=== PATIENT | female | born 1980 | race American Indian/Alaskan Native ===

== ENCOUNTER 2018-04-09 04:49 | Emergency (ER) | payer OTHER ==
[2018-04-09] MEDS ORDERED: TYLENOL ONE (05:33)
[2018-04-09 06:04] LABS: Basophils # (Auto) 0.1 K/mm3 (0.0-0.1); Eosinophils # (Auto) 0.2 K/mm3 (0.0-0.4); Eosinophils % (Auto) 2.3 % (0.0-4.3); Hemoglobin 12.6 gm/dl (10.1-14.3); Lymphocytes # (Auto) 1.3 K/mm3 (1.2-5.4); Lymphocytes % (Auto) 17.7 % (13.4-35.0); Mean Corpuscular HGB Conc 34 % (30-34); Mean Corpuscular Hemoglobin 31 pg (28-32); Mean Corpuscular Volume 91 fl (79-97); Monocytes # (Auto) 0.8 K/mm3 (0.0-0.8); Monocytes % (Auto) 9.9 % (0.0-7.3); Platelet Count 317 K/mm3 (140-440); Red Blood Count 4.08 M/mm3 (3.65-5.03); Red Cell Distribution Width 13.2 % (13.2-15.2)
[2018-04-09 06:34] LABS: BUN/Creatinine Ratio 18; Blood Urea Nitrogen 11 mg/dL (7-17); Calcium 8.8 mg/dL (8.4-10.2); Hemolysis Index 36
--- NOTE | 2018-04-09 07:22 | Emergency Department Report ---
ED General Adult HPI - General Chief complaint: Extremity Problem,Nontraumatic Stated complaint: LT FOOT PAIN Time Seen by Provider: 04/09/18 07:20 Source: patient Mode of arrival: Ambulatory Limitations: Language Barrier - History of Present Illness Initial comments: 38-year-old female complains of swelling and redness of her left toe and foot. Symptoms for the past 3 days. She's had no fever or chills. She hasn't walked outside but she thinks that something may have stung her or bit her. She didn' t actually see an insect. She has no history of podiatric problems. She's had no recent travel. She denies calf or thigh tenderness. She's had no respiratory symptoms. -: days(s) Location: left, lower extremity Radiation: non-radiation Quality: stabbing Consistency: intermittent Improves with: none Worsens with: none Associated Symptoms: denies other symptoms Treatments Prior to Arrival: none - Related Data Previous Rx's Medication Instructions Recorded Last Taken Type HYDROcodone/ACETAMINOPHEN [Devers 1 each PO Q6H PRN #7 tablet 04/09/18 Unknown Rx 5-325 Tablet] Sulfamethoxazole/Trimethoprim 1 each PO BID #20 tablet 04/09/18 Unknown Rx [Bactrim DS TAB] Allergies Allergy/AdvReac Type Severity Reaction Status Date / Time No Known Allergies Allergy Unverified 04/09/18 05:41 ED Review of Systems ROS: Stated complaint: LT FOOT PAIN Other details as noted in HPI Constitutional: denies: chills, fever Eyes: denies: eye pain, eye discharge, vision change ENT: denies: ear pain, throat pain Respiratory: denies: cough, shortness of breath, wheezing Cardiovascular: denies: chest pain, palpitations Endocrine: no symptoms reported Gastrointestinal: denies: abdominal pain, nausea, diarrhea Genitourinary: denies: urgency, dysuria, discharge Musculoskeletal: as per HPI. denies: back pain, joint swelling, arthralgia Skin: denies: rash, lesions Neurological: denies: headache, weakness, paresthesias Psychiatric: denies: anxiety, depression Hematological/Lymphatic: denies: easy bleeding, easy bruising ED Past Medical Hx - Past Medical History Previous Medical History?: No - Social History Smoking Status: Current Every Day Smoker Substance Use Type: Alcohol - Medications Home Medications: Home Medications Medication Instructions Recorded Confirmed Last Taken Type HYDROcodone/ACETAMINOPHEN [Devers 1 each PO Q6H PRN #7 tablet 04/09/18 Unknown Rx 5-325 Tablet] Sulfamethoxazole/Trimethoprim 1 each PO BID #20 tablet 04/09/18 Unknown Rx [Bactrim DS TAB] ED Physical Exam - General Limitations: Language Barrier General appearance: alert, in no apparent distress - Head Head exam: Present: atraumatic, normocephalic - Eye Eye exam: Present: normal appearance, PERRL, EOMI - ENT ENT exam: Present: mucous membranes moist - Neck Neck exam: Present: normal inspection. Absent: tenderness, meningismus - Respiratory Respiratory exam: Present: normal lung sounds bilaterally. Absent: respiratory distress - Cardiovascular Cardiovascular Exam: Present: regular rate, normal rhythm. Absent: systolic murmur, diastolic murmur, rubs, gallop - GI/Abdominal GI/Abdominal exam: Present: soft, normal bowel sounds. Absent: distended, tenderness, guarding, rebound, rigid - Extremities Exam Extremities exam: Present: other (there is a central umbilicated area which looks like a possible sustaining of the left dorsal lateral toe. There is erythema. There is no pustule. There is mild edema and slight dorsal foot edema. There is no calf or thigh tenderness. There is no lymphangitis. There is no inguinal adenopathy.) - Back Exam Back exam: Present: normal inspection - Neurological Exam Neurological exam: Present: alert, oriented X3, CN II-XII intact. Absent: motor sensory deficit - Psychiatric Psychiatric exam: Present: normal affect, normal mood - Skin Skin exam: Present: warm, dry, intact, normal color. Absent: rash ED Course Vital Signs 04/09/18 04/09/18 04/09/18 04:47 05:31 07:26 Temperature 98.0 F 98 F Pulse Rate 79 75 88 Respiratory 18 20 18 Rate Blood Pressure 177/115 177/115 Blood Pressure 147/93 [Right] O2 Sat by Pulse 100 100 99 Oximetry - Reevaluation(s) Reevaluation #1: Patient was started with a gram of vancomycin. She is nontoxic. She is appropriate for a trial of outpatient antibiotics. Was nonrevealing. She is referred to podiatry. She is discharged in stable condition 04/09/18 08:41 ED Medical Decision Making - Lab Data Result diagrams: 04/09/18 05:53 04/09/18 05:53 Laboratory Results - last 24 hr 04/09/18 04/09/18 05:53 05:53 WBC 7.6 RBC 4.08 Hgb 12.6 Hct 37.0 MCV 91 MCH 31 MCHC 34 RDW 13.2 Plt Count 317 Lymph % (Auto) 17.7 [place] % (Auto) 9.9 H Eos % (Auto) 2.3 Baso % (Auto) 1.0 Lymph # 1.3 [place] # 0.8 Eos # 0.2 Baso # 0.1 Seg Neutrophils % 69.1 Seg Neutrophils # 5.3 Sodium 136 L Potassium 4.5 Chloride 102.2 Carbon Dioxide 24 Anion Gap 14 BUN 11 Creatinine 0.6 L Estimated GFR > 60 BUN/Creatinine Ratio 18 Glucose 95 Calcium 8.8 - Radiology Data interpreted by me: Foot x-rayed and no osseous abnormality. Critical care attestation.: If time is entered above; I have spent that time in minutes in the direct care of this critically ill patient, excluding procedure time. ED Disposition Clinical Impression: Cellulitis of foot, left Disposition: DC-01 TO HOME OR SELFCARE Is pt being admited?: No Does the pt Need Aspirin: No Condition: Stable Instructions: Cellulitis (ED) Additional Instructions: Rx as directed. Follow-up with [facility] as listed. Prop up foot over the next 2 days as much as possible. Prescriptions: HYDROcodone/ACETAMINOPHEN [Devers 5-325 Tablet] 1 each PO Q6H PRN #7 tablet PRN Reason: pain Sulfamethoxazole/Trimethoprim [Bactrim DS TAB] 1 each PO BID #20 tablet Referrals: PRIMARY CARE, [Primary Care Provider] - 3-5 Days SHARLENE TORRE DPM [Staff Physician] - 2-3 Days Forms: Work/School Release Form(ED) Time of Disposition: 08:44
[2018-04-09] MEDS ORDERED: CATAPRES PO ONE (07:23)
[2018-04-09 07:27] VITALS: BP 147/93
[2018-04-09] MEDS ORDERED: VANCOMYCIN/NS 1 GM/250 ML 1 GM/250 ML BAG IV ONE (07:38)
[2018-04-09] MEDS ORDERED: VANCOMYCIN PHARMACY TO DOSE IV SCH (08:00)
--- NOTE | 2018-04-09 08:19 | XRay Report ---
Left foot 2 views: History: Toe pain redness and swelling. Findings: No fracture, lytic lesion, periosteal reaction or soft tissue calcification. Normal articular surfaces. Plantar spur. Impression: Plantar spur.
[2018-04-09] MEDS ORDERED: VANCOMYCIN 1,500 MG in NACL 0.9% 500 ML 500 ML IV ONE (08:30)
[2018-04-09] MEDS ORDERED: ULTRAM PO ONE (08:58)
== END 2018-04-09 10:59 | disposition home or self-care (01) ==
LOC: ED 04:49
DX: L03.116 Cellulitis of left lower limb (principal); F17.200 Nicotine dependence, unspecified, uncomplicated
CPT/HCPCS: 36415; 73620; 80048; 85025; 96374; 99284; J3370; J7040